=== PATIENT | female | born 1975 | race Asian ===

== ENCOUNTER 2017-10-25 15:23 | Emergency (ER) | payer MEDICAID ==
[~2017-10-25] VITALS: Ht 165.1 cm; Wt 67.1 kg
[2017-10-25 15:30] VITALS: BP 112/75
--- NOTE | 2017-10-25 16:05 | NUR ---
PT IS AWAITING EVAL BY . PT IS C/O FLU LIKE SYMPTOMS. PT HAS ELDRIDGE, RT SIDED SINUS CONGESTION/PAIN, PAIN IN BILATERAL EARS, PAIN IN THROAT.
[2017-10-25] MEDS ORDERED: IBUPROFEN 600 MG TABLET PO ONE ×2 (17:00→17:11)
== END 2017-10-25 17:16 | disposition home or self-care (01) ==
LOC: ER 15:29
DX: J06.9 Acute upper respiratory infection, unspecified (principal)
CPT/HCPCS: A4606; Z7610